=== PATIENT | male | born 1985 | race Caucasian/White ===

== ENCOUNTER 2021-11-25 17:22 | Emergency (ER) | payer SELFPAY ==
[~2021-11-25] VITALS: Ht 185.4 cm; Wt 74.4 kg
== END 2021-11-25 21:00 | disposition home or self-care (01) ==
LOC: ED 17:22
DX: R63.4 Abnormal weight loss (principal)
CPT/HCPCS: 36415; 80053; 81001; 84443; 85025; 99284; G0480